=== PATIENT | male | born 1990 | race Two or more races ===

== ENCOUNTER 2019-11-23 06:10 | Day surgery (SDC) | payer OTHER ==
[2019-11-23] VITALS (11 sets, daily range): BP systolic 126–144; BP diastolic 69–90
[~2019-11-23] VITALS: Ht 177.8 cm; Wt 93.0 kg
[~2019-11-23 06:10] MED LIST: [UNRECOGNIZED DRUG - REMARK] PO; ceFAZolin 1gm IVPB IVPB ONE; celeBREX 200mg Cap **SURGERY PATIENTS ONLY ORAL ONE; oxyCONTIN 20mg tab ORAL ONE
--- NOTE | 2019-11-23 07:24 | Operative Note - PDOC ---
Operative Note Operative Note Pre-op Diagnosis: right knee lateral meniscus tear Procedure: see op report Post-op Diagnosis: same as pre-op plus Operative Findings: consistent w/pre-op dx studies Anesthesia: MAC Specimen: none Complications: none Condition: stable Estimated Blood Loss: none Implant(s) used?: No Art Latham MD Nov 23, 2019 07:24
--- NOTE | 2019-11-23 07:24 | Pre-Procedure Note/Attestation ---
Pre-Procedure Note/Attestation Complete Prior to Procedure Planned Procedure: right Procedure Narrative: diagnostic arthroscopy, possible menisectomy Indications for Procedure Pre-Operative Diagnosis: right knee lateral meniscus tear Attestation I attest that I discussed the nature of the procedure; its benefits; risks and complications; and alternatives (and the risks and benefits of such alternatives ), prior to the procedure, with the patient (or the patient's legal business center representative). I attest that, if there was a reasonable possibility of needing a blood transfusion, the patient (or the patient's legal business center representative) was given the [facility] standardized written summary, pursuant to the Dov Dmitriy Blood Safety Act ([place] Health and Safety Code # 1645, as amended). I attest that I re-evaluated the patient just prior to the surgery and that there has been no change in the patient's H&P, except as documented below: Art Latham MD Nov 23, 2019 07:24
[2019-11-23] MEDS ORDERED: HYDROCHLOROTHIA25 MG ORAL (07:27)
[2019-11-23] MEDS ORDERED: Tylenol #3 tab (300mg/30mg) ORAL PRN (07:30)
[2019-11-23] MEDS ORDERED: HYDROcodone/Acetamin 5/325 tab ORAL PRN ×2 (07:30→08:30)
[2019-11-23] MEDS ORDERED: D5 1/2NS 1,000 ML IV SCH (07:30)
[2019-11-23] MEDS ORDERED: HYDROmorphone 1mg/ml Carpuject SUBQ PRN (07:30)
[2019-11-23] MEDS ORDERED: Duramorph PF 5mg/10ml amp ONE (08:25)
[2019-11-23] MEDS ORDERED: Ketorolac 30mg Inj ONE (08:25)
[2019-11-23] MEDS ORDERED: Bupivacaine 0.25% Inj 30ml INJ ONE (08:25)
[2019-11-23] MEDS ORDERED: Kenalog-40 1ml Vial ONE (08:25)
[2019-11-23] MEDS ORDERED: Lidocaine 1% 10mg/ml/Epi 0.005mg/ml 30ml vial INJ ONE (08:25)
[2019-11-23] MEDS ORDERED: LR 1000ml 1,000 ML IVLG SCH (08:28)
--- NOTE | 2019-11-23 08:28 | Anethesia Preoperative Eval ---
Anesthesia Pre-op PMH/ROS General Date of Evaluation: Nov 23, 2019 Time of Evaluation: 08:33 Anesthesiologist: Jo Ann ASA Score: ASA 2 Mallampati Score Class I : Soft palate, uvula, fauces, pillars visible Class II: Soft palate, uvula, fauces visible Class III: Soft palate, base of uvula visible Class IV: Only hard plate visible Mallampati Classification: Class III Surgeon: Yeison Diagnosis: R Knee Pain Surgical Procedure: R Knee Arthroscopy Anesthesia History: none Family History: no anesthesia problems Allergies: Coded Allergies: No Known Allergies (Unverified , 11/21/19) Medications: see eMAR Patient NPO?: Yes Past Medical History Cardiovascular: Reports: HTN Anesthesia Pre-op Phys. Exam Physician Exam Last Vital Signs Date Time Temp Pulse Resp B/P (MAP) Pulse Ox O2 Delivery O2 Flow Rate FiO2 11/23/19 07:15 Room Air 11/23/19 07:05 98.2 59 18 129/85 97 Constitutional: NAD Neurologic: CN 2-12 intact Cardiovascular: RRR Respiratory: CTA Gastrointestinal: S/NT/ND Airway Exam Mallampati Score: Class III MO: full ROM: full Teeth: intact Anesthesia Pre-op A/P Risk Assessment & Plan Assessment: ASA 2 Plan: GA, SED Status Change Before Surgery: No Pre-Antibiotics Dru Grams Ancef IV Given Within 1 Hr of Incision: Yes Time Given: 08:51 Laith Cherry MD Nov 23, 2019 08:28
[2019-11-23] MEDS ORDERED: fentaNYL 100 mcg/2 mL IV PRN (08:30)
[2019-11-23] MEDS ORDERED: Hydromorphone 0.5mg/0.5ml inj IVP PRN (08:30)
[2019-11-23] MEDS ORDERED: LORazepam Inj 2mg/ml 1ml IV PRN (08:30)
[2019-11-23] MEDS ORDERED: Midazolam 2mg/2ml Inj IVP PRN (08:30)
[2019-11-23] MEDS ORDERED: Labetalol 5mg/ml 20ml vial IV PRN (08:30)
[2019-11-23] MEDS ORDERED: Metoclopramide 10mg/2ml Inj IVP PRN (08:30)
[2019-11-23] MEDS ORDERED: Ketorolac 30mg Inj IV PRN ×2 (08:30)
[2019-11-23] MEDS ORDERED: LR 1000ml ONE (08:30)
[2019-11-23] MEDS ORDERED: Sterile Water Irrig 1000ml IRRIG ONE (08:30)
[2019-11-23] MEDS ORDERED: Acetaminophen (Non formulary) 100 ML IV ONE (08:30)
[2019-11-23] MEDS ORDERED: Atropine Sulfate 0.4mg/ml inj IVP PRN (08:30)
[2019-11-23] MEDS ORDERED: HYDROcodone/Acetamin 7.5/325 tab ORAL PRN (08:30)
[2019-11-23] MEDS ORDERED: Meperidine 25mg/0.5ml Inj (FOR RIGORS ONLY) IV PRN (08:30)
[2019-11-23] MEDS ORDERED: oxyCODONE HCL/Acetaminophen 5/325mg ORAL PRN (08:30)
[2019-11-23] MEDS ORDERED: DiphenhydrAMINE 50mg/ml Inj IVP PRN (08:30)
[2019-11-23] MEDS ORDERED: fentaNYL 100 mcg/2 mL IV ONE (08:36)
[2019-11-23] MEDS ORDERED: Lidocaine 1% MPF 10mg/ml 5ml ONE (08:38)
[2019-11-23] MEDS ORDERED: Dexamethasone 4mg/ml vial ONE (08:38)
[2019-11-23] MEDS ORDERED: Sodium Chloride 10ml vial INJ ONE (08:38)
[2019-11-23] MEDS ORDERED: Propofol 200mg/20ml IV ONE (08:38)
[2019-11-23] MEDS ORDERED: NS Irrig 4000ml IRRIG ONE ×2 (09:02→09:14)
[2019-11-23] MEDS ORDERED: Duramorph PF 5mg/10ml amp IT ONE (09:11)
--- NOTE | 2019-11-23 09:11 | Immediate Post-Op Evaluation ---
Immediate Post-Op Evalulation Immediate Post-Op Evalulation Procedure: R Knee Arthroscopy Date of Evaluation: Nov 23, 2019 Time of Evaluation: 09:47 IV Fluids: 500 LR Blood Products: 0 Estimated Blood Loss: 9 Urinary Output: 0 Blood Pressure Systolic: 144 Blood Pressure Diastolic: 81 Pulse Rate: 67 Respiratory Rate: 16 O2 Sat by Pulse Oximetry: 97 Temperature (Fahrenheit): 100.5 Pain Score (1-10): 2 Nausea: No Vomiting: No Complications 0 Patient Status: awake, reacts, patent, none Hydration Status: adequate Dru Grams Ancef IV Given Within 1 Hr of Incision: Yes Time Given: 08:51 Laith Cherry MD Nov 23, 2019 09:11
--- NOTE | 2019-11-23 09:11 | 48 Hour Post Anesthesia Eval ---
Post Anesthesia Evaluation Procedure: R Knee Arthroscopy Date of Evaluation: Nov 23, 2019 Time of Evaluation: 11:54 Blood Pressure Systolic: 141 0: 78 Pulse Rate: 54 Respiratory Rate: 18 Temperature (Fahrenheit): 98.6 O2 Sat by Pulse Oximetry: 98 Airway: patent Nausea: No Vomiting: No Pain Intensity: 2 Hydration Status: adequate Cardiopulmonary Status: Stable Mental Status/LOC: patient returned to baseline Follow-up Care/Observations: 0 Post-Anesthesia Complications: 0 Follow-up care needed: ready to discharge Laith Cherry MD Nov 23, 2019 09:11
--- NOTE | 2019-11-23 21:00 | Operative Note - Dictated ---
DATE OF OPERATION: 11/23/2019 PREOPERATIVE DIAGNOSIS: Left knee lateral meniscus tear. POSTOPERATIVE DIAGNOSIS: Left knee lateral meniscus tear. PROCEDURES: 1. Left knee arthroscopic lateral meniscectomy. 2. Synovectomy medial, lateral, and patellofemoral compartment. SURGEON: Art Latham M.D. ANESTHESIA: MAC with local. INDICATION FOR PROCEDURE: The patient is a pleasant gentleman who has had significant injuries to his left knee, had loss of full range of motion, locked knee. He had MRI, which showed displaced bucket-handle lateral meniscus tear indicative of operative fixation. Risks, limitations, expectations, and complications of procedure were discussed in detail. All questions were addressed. DESCRIPTION OF PROCEDURE: After informed consent was obtained, the patient was brought to the operating room. The patient was placed under anesthesia. The leg was prepped and draped in a sterile manner. Time-out was performed. An inferolateral stab incision was then made. Trocar was introduced into the knee joint. Systematic toward knee was performed. There was hypertrophic synovial tissue in patellofemoral compartment. No chondral damage. Medial compartment was entered. Medial gutter was free of any loose bodies. Medial compartment was entered. Synovectomy was performed for better visualization of medial compartment. Medial compartment was entered, free of any meniscal chondral damage. The ACL was probed and noted to be intact. Synovectomy was extended into intercondylar notch, lateral compartment. Lateral compartment entered. There was bucket-handle tear. Partial lateral meniscectomy was performed. There was no ability to repair the meniscus at substantial portion including anterior horn and middle body extended the popliteus was completely gone. Debridement done to meniscal capsular junction was performed. Remnants was probed to make sure that there was no displacement of the bucket-handle tear in the lateral gutter, under the meniscus, as well as the posterior horn. Once it was done, the instruments were removed. Portal sites were closed with 3-0 Monocryl suture. Steri-Strips and a sterile dressing were applied. ESTIMATED BLOOD LOSS: None. COMPLICATIONS: None. SPECIMENS: None. IMPLANTS: None. Art Latham M.D. DR: Horace JOB#: [id number] CC: [email or web address]
== END 2019-11-23 11:10 | disposition home or self-care (01) ==
LOC: SUR 06:10
DX: S83.282A Other tear of lateral meniscus, current injury, left knee, initial encounter (principal); I10 Essential (primary) hypertension; X58.XXXA Exposure to other specified factors, initial encounter; Y93.9 Activity, unspecified; Y92.9 Unspecified place or not applicable
CPT/HCPCS: 29876; 29881; 97161; J0131; J0690; J1100; J1885; J2250; J2405; J2704; J3010; J3301; J3490; J7120; 94003; 94150